=== PATIENT | female | born 1940 | race Caucasian/White ===

== ENCOUNTER 2017-07-31 14:35 | Outpatient (CLI) ==
--- NOTE | 2017-07-31 15:43 | DI ---
EXAM: Chest two views HISTORY: Cough COMPARISON: None TECHNIQUE: Two views of the chest were performed FINDINGS: Hazy right upper lobe opacity. Left basilar nodular opacity probably in the lingula. There is no pleural effusion or pneumothorax. The heart is normal in size. The mediastinal contour is no rmal. There are no acute abnormalities of the bones. IMPRESSION: Unexpected finding: Hazy right upper lobe opacity may represent pneumonia. Left basilar nodular opa city probably in the lingula, indeterminate. CT chest with contrast recommended for further evaluati on.
== END 2017-07-31 14:36 | disposition home or self-care (01) ==
LOC: RAD 14:35
PROVIDERS: ATTEND Family Medicine
DX: R05 Cough (principal); R50.9 Fever, unspecified

== ENCOUNTER 2017-10-02 12:56 | Outpatient (CLI) | END 2017-10-02 12:57 | disposition home or self-care (01) | LOC: RAD 12:56 | PROVIDERS: ATTEND Family Medicine | DX: Z12.31 Encounter for screening mammogram for malignant neoplasm of breast (principal) | CPT/HCPCS: 77067 ==